=== PATIENT | female | born 1990 | race Hispanic/Latino ===

== ENCOUNTER 2021-10-02 20:43 | Emergency (ER) | payer MEDICAID ==
[~2021-10-02] VITALS: Ht 160 cm; Wt 78.5 kg
[2021-10-02 20:59] VITALS: BP 134/71
[2021-10-02] MEDS ORDERED: DICYCLOMINE HCL 10 MG/5 ML ML PO ONE (21:20)
[2021-10-02] MEDS ORDERED: MAG/ALUM/SIMETH 30 ML UDCUP PO ONE (21:30)
[2021-10-02] MEDS ORDERED: LIDOCAINE HCL 2% VISCOUS 15 ML UDCUP PO ONE (21:30)
[2021-10-02] MEDS ORDERED: DIPHENHYDRAMINE HCL 25 MG CAPSULE PO ONE (21:30)
[2021-10-02] MEDS ORDERED: ACETAMINOPHEN 500 MG TABLET PO ONE (21:30)
[2021-10-02] MEDS ORDERED: D-ME1POW16 PO (21:37)
== END 2021-10-02 21:46 | disposition home or self-care (01) ==
LOC: EDH 20:43
DX: J06.9 Acute upper respiratory infection, unspecified (principal); Z20.822 Contact with and (suspected) exposure to COVID-19; Z98.890 Other specified postprocedural states; Z79.899 Other long term (current) drug therapy
CPT/HCPCS: 99283; 87635; 87880; 87804 ×2; Q0163; C9803